=== PATIENT | female | born 1965 | race Asian ===

== ENCOUNTER 2021-11-23 20:05 | Outpatient (REF) | payer MEDICAID, SELFPAY ==
[2021-11-23 21:08] LABS: Influenza A PCR NEGATIVE (Negative); Influenza B PCR NEGATIVE (Negative); Resp Syncy Virus RNA Qual PCR NEGATIVE (Negative); SARS COV2 PCR INHOUSE NEGATIVE (Negative)
== END 2021-11-23 20:06 | disposition home or self-care (01) ==
LOC: HO.LAB 20:05
PROVIDERS: Visit Provider Internal Medicine
DX: Z20.822 Contact with and (suspected) exposure to COVID-19 (principal); R51.9 Headache, unspecified; R05.9 Cough, unspecified
CPT/HCPCS: 0241U